=== PATIENT | female | born 1985 | race Hispanic/Latino ===

== ENCOUNTER 2019-06-25 15:18 | Emergency (ER) | payer BC ==
[~2019-06-25] VITALS: Ht 160 cm; Wt 78.0 kg
--- OUTSIDE RECORDS SUMMARY | 2019-06-25 15:20 | XMS REPORT ---
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 Allergies, Adverse Reactions, Alerts Allergy Name Allergy Type Status Severity Reaction(s) Onset Date Inactive Date Treating Clinician Comments No Known Allergies DA Active U 2018-08-01 00:00:00 No Known Intolerances DA Active U 2009-09-19 00:00:00 Medications This patient has no known medications. Results Test Description Test Time Test Comments Text Results Atomic Results Result Comments US RENAL RETROPERITONEAL COMP [place] [address] Patient Name: WADE GALE MR #: [id number] : 1985 Age/Sex: 32/F Req #: [id number] Adm Physician: Ordered by: KIRSTY FRY MD Report #: [id number] Location: Room/Bed: Procedure: US/US RENAL RETROPERITONEAL COMP Exam Date: Exam Time: REPORT STATUS: Signed PROCEDURE: US RETROPERITONEAL ( KIDNEY ). COMPARISON: None. INDICATIONS: Chronic Kidney Disease TECHNIQUE: Kuo-scale and color sonographic images of the bilateral kidneys and bladder where obtained in transverse and longitudinal planes. FINDINGS: RIGHT KIDNEY: None visualized. LEFT KIDNEY: 13.8 cm, cortex 2.6 cm Cysts: None. Solid masses: None. Stones: None. Hydronephrosis: None. Echogenicity: Normal. Bladder: Normal contour. Left ureteral jet is visualized. CONCLUSION: No acute sonographic abnormality. Nonvisualization of the right kidney consistent with given patient history of right renal agenesis. Dictated by: Asiya Aguilar M.D. on 10/21/2017 at 9:02 Electronically approved by: Asiya Aguilar M.D. on 10/21/2017 at 9:02 Dictated By: ASIYA AGUILAR MD 1 Transcribed By: ASHU on 10/21/17901 COPY TO: KIRSTY FRY MD PELVIC (NON OB) [place] OR F/U [place] [address] Patient Name: WADE GALE MR #: [id number] : 1985 Age/Sex: 32/F Req #: [id number] [facility] Physician: Ordered by: KIRSTY FRY MD Report #: [id number] Location: Room/Bed: Procedure: [id number] US/US PELVIC (NON OB) [place] OR F/U Exam Date: Exam Time: REPORT STATUS: Signed PROCEDURE: US PELVIC (NON OB) [place] OR F/U COMPARISON: None. INDICATIONS: Chronic Kidney Disease TECHNIQUE: Grayscale transverse and sagittal transabdominal and transvaginal images were obtained of the pelvis. FINDINGS: See below. CONCLUSION: Please see the dictation of the renal ultrasound for full clinical details. Dictated by: Asiya Aguilar M.D. on 10/21/2017 at 9:07 Electronically approved by: Asiya Aguilar M.D. on 10/21/2017 at 9:07 Dictated By: ASIYA AGUILAR MD 6 Transcribed By: ASHU on 10/21/17906 COPY TO: KIRSTY FRY MD
[2019-06-25] MEDS ORDERED: ONDANSETRON HCL INJ 2MG/ML 2ML 2 MG/ML VIAL IV STA (15:44)
[2019-06-25] MEDS ORDERED: CEFTRIAXONE SOD 1 GM/NS 50 ML 50 ML IV ONE ×2 (15:45→16:18)
[2019-06-25] MEDS ORDERED: SODIUM CHLORIDE 0.9% 1000ML 1,000 ML IV SCH (15:45)
[2019-06-25] MEDS ORDERED: ALBUTEROL/IPRATROPIUM 3 ML NEB NEB ONE (16:15)
[2019-06-25] MEDS ORDERED: ONDANSETRON HCL INJ 2MG/ML 2ML 2 MG/ML VIAL ONE (16:17)
[2019-06-25] MEDS ORDERED: ALBUTEROL SULF 0.083% NEB SOLN 3 ML NEB ONE (16:17)
[2019-06-25] MEDS ORDERED: SODIUM CHLORIDE 0.9% 1000ML 1,000 ML ONE (16:18)
--- NOTE | 2019-06-25 16:25 | Diagnostic Imaging Report ---
EXAMINATION: CXR 2 VIEW - HOPD INDICATION: Chest pain COMPARISON: None FINDINGS: LINES/TUBES:None LUNGS:The lungs are well-inflated. No focal consolidation or pulmonary edema. PLEURA:No pleural effusion or pneumothorax. MEDIASTINUM:The cardiomediastinal silhouette appears normal in size and shape. BONES/SOFT TISSUES:No acute osseous injury. ABDOMEN:No free air under the diaphragm. IMPRESSION: Clear lungs. Signed by: Natividad Ordoñez MD on 06/25/2019 4:22 PM
[2019-06-25] MEDS ORDERED: PROMETHAZINE HCL 25 MG TAB ONE (16:42)
[2019-06-25 17:28] VITALS: BP 157/88
== END 2019-06-25 17:33 | disposition home or self-care (01) ==
LOC: FSED 15:18
DX: J45.21 Mild intermittent asthma with (acute) exacerbation (principal); J20.9 Acute bronchitis, unspecified; R94.31 Abnormal electrocardiogram [ECG] [EKG]; I10 Essential (primary) hypertension; K21.9 Gastro-esophageal reflux disease without esophagitis
CPT/HCPCS: 71046; 80048; 85025; 93005; 99284; J0696; J2405; J7030

== ENCOUNTER → 2022-06-26 | Outpatient (CLI) | payer BC ==
[~2022-06-26] MED LIST: CIPRO250 MG PO; LOSARTAN POTASS25 MG PO; PROTONIX20 MG PO; TRULANCE3 MG PO
== END ==
LOC: DX 08:35
PROVIDERS: ATTEND Internal Medicine Gastroenterology
DX: D64.89 Other specified anemias (principal); Z20.822 Contact with and (suspected) exposure to COVID-19
CPT/HCPCS: 0223U; 36415; 74250

== ENCOUNTER → 2024-07-18 | Day surgery (SDC) | payer BC ==
[~2024-07-18] MED LIST changes: +ANDROGEL1.25 GM TOP; +APPLE CIDER VI1 EAC3 PO; +BIOTIN PO; +FENTANYL CITRATE/PF 100MCG/2 ML INJ ONE; +HYOSCYAMINE SULFATE 0.5 MG/ML INJ ONE; +LIDOCAINE HCL 2% LOCAL INJ 5 ML SDV VIAL INJ ONE; +METOCLOPRAMIDE HCL 10 MG/2ML VIAL ONE; +PROPOFOL IV EMULSION 10 MG/ML 20 ML VIAL ONE; +PROPOFOL IV EMULSION 10 MG/ML 50 ML VIAL IV ONE; +VITAMIN B PO; +VITAMIN D PO
[2024-07-18] MEDS: LACTATED RINGER'S 1,000 ML ONE (06:53)
[2024-07-18 10:30] VITALS: BP 108/81; PULSE 96; RESP 16; TEMP 97.4; O2SAT 99
[2024-07-18 11:48] LABS: WBC,FECAL (FECAL LACTOFERRIN) NEGATIVE (NEGATIVE)
[2024-07-22 08:15] LABS: ENDOMYSIAL ANTIBODIES, IGA Negative (Negative)
[2024-07-22 08:38] LABS: IMMUNOGLOBULIN A 326 mg/dL (87-352); TISSUE TRANSGLUTAMINASE IGA AB <2 U/mL (0-3)
== END | disposition home or self-care (01) ==
LOC: OR 06:00
PROVIDERS: ATTEND Internal Medicine Gastroenterology
DX: K29.50 Unspecified chronic gastritis without bleeding (principal); D12.2 Benign neoplasm of ascending colon; K52.9 Noninfective gastroenteritis and colitis, unspecified; K20.90 Esophagitis, unspecified without bleeding; K44.9 Diaphragmatic hernia without obstruction or gangrene; K62.89 Other specified diseases of anus and rectum; K64.8 Other hemorrhoids; D64.9 Anemia, unspecified; Z88.6 Allergy status to analgesic agent; Z01.810 Encounter for preprocedural cardiovascular examination; Z79.899 Other long term (current) drug therapy; Z80.0 Family history of malignant neoplasm of digestive organs
CPT/HCPCS: 43239; 45380; 45385; 81025; 82784; 83516; 83630; 83993; 86256; 87045; 87177; 87324; 87328; 87449; 93005; J1980; J2001; J2470; J2704 ×2; J2765; J3010; J7121; 45378

== ENCOUNTER → 2025-01-18 | Outpatient (REF) | payer BC ==
[~2025-01-18] MED LIST changes: -FENTANYL CITRATE/PF 100MCG/2 ML INJ ONE; -HYOSCYAMINE SULFATE 0.5 MG/ML INJ ONE; -LIDOCAINE HCL 2% LOCAL INJ 5 ML SDV VIAL INJ ONE; -METOCLOPRAMIDE HCL 10 MG/2ML VIAL ONE; -PROPOFOL IV EMULSION 10 MG/ML 20 ML VIAL ONE; -PROPOFOL IV EMULSION 10 MG/ML 50 ML VIAL IV ONE
== END ==
LOC: RAD 15:45
PROVIDERS: ATTEND Internal Medicine
DX: Z11.1 Encounter for screening for respiratory tuberculosis (principal)
CPT/HCPCS: 71046